=== PATIENT | male | born 1965 | race Two or more races ===

== ENCOUNTER 2023-12-20 01:31 | Emergency (ER) | payer SELFPAY ==
[~2023-12-20] VITALS: Ht 160 cm; Wt 67.0 kg
[2023-12-20 01:37] VITALS: BP 145/82; PULSE 71; RESP 16; TEMP 98.1; O2SAT 95
[2023-12-20] MEDS ORDERED: AMOX1TAB16 MT (02:50)
[2023-12-20] MEDS: LIDOCAINE HCL/PF 1% 10 MG/ML 5ML VIAL INFIL ONE (03:00)
[2023-12-20] MEDS: BACITRACIN ZINC OINT UDPKT TOP ONE (03:00)
[2023-12-20] MEDS: TETANUS, DIPHTHERIA, PERTUSSIS VAC/PF 0.5ML (>10YR OLD) IM ONE (03:00)
[2023-12-20] MEDS ORDERED: CLIN-194 MT (03:33)
== END 2023-12-20 04:44 | disposition home or self-care (01) ==
LOC: ER 01:31
DX: S02.2XXA Fracture of nasal bones, initial encounter for closed fracture (principal); S01.511A Laceration without foreign body of lip, initial encounter; V98.8XXA Other specified transport accidents, initial encounter; Y93.89 Activity, other specified; Y92.89 Other specified places as the place of occurrence of the external cause; Y99.8 Other external cause status
CPT/HCPCS: 70486; 99284